=== PATIENT | male | born 1955 | race African-American/Black ===

== ENCOUNTER 2022-11-19 14:30 | Emergency (ER) | payer MEDICARE, MEDICAID ==
[~2022-11-19] VITALS: Ht 172.7 cm; Wt 75.0 kg
[~2022-11-19 14:30] MED LIST: ALBU05; ASPI-518; ENAL-75; [UNRECOGNIZED DRUG - CODE]
[2022-11-19 14:34] VITALS: O2SAT 95
[2022-11-19] MEDS ORDERED: LIDOCAINE 5% PATCH TOP SCH (17:15)
[2022-11-19] MEDS ORDERED: LIDO700A15 TP (17:17)
[2022-11-19 17:57] VITALS: BP 126/68; PULSE 92; RESP 16; TEMP 98.1
== END 2022-11-19 18:04 | disposition home or self-care (01) ==
LOC: ER 14:57
DX: S43.421A Sprain of right rotator cuff capsule, initial encounter (principal); W06.XXXA Fall from bed, initial encounter; Y93.89 Activity, other specified; Y92.89 Other specified places as the place of occurrence of the external cause; Y99.8 Other external cause status; J45.909 Unspecified asthma, uncomplicated; I25.2 Old myocardial infarction
CPT/HCPCS: 73030; 93005; 99283; A4565